=== PATIENT | male | born 1995 | race Caucasian/White ===

== ENCOUNTER → 2018-11-13 | Outpatient (CLI) | payer OTHER ==
--- NOTE | 2018-11-13 18:18 | RADIOLOGY IMAGING REPORT ---
[place] [facility] [place] NAME: Memo Savage : 1995 MR: [id number] V: [id number] EXAM DATE: ORDERING PHYSICIAN: JAMES MATHEWS TECHNOLOGIST: Location: [facility] Patient: Memo Savage : 1995 Visit/Account:[id number] Date of Sevice: 11/13/2018 ANKLE 3 VIEW MIN RIGHT HISTORY: Pain COMPARISON: None FINDINGS: No evidence of acute fracture or dislocation. Talar dome is smooth in contour. Bohler angle is well maintained. Base of the 5th metatarsal is intact. IMPRESSION: 1. No acute osseous abnormality. Report Dictated By: Mani Galarza MD at 11/13/2018 6:13 PM Report E-Signed By: Mani Galarza MD at 11/13/2018 6:14 PM [id number]
== END ==
LOC: RAD 13:22
PROVIDERS: ATTEND Family Medicine
DX: M25.571 Pain in right ankle and joints of right foot (principal)